=== PATIENT | female | born 1995 | race Hispanic/Latino ===

== ENCOUNTER 2023-11-26 13:52 | Emergency (ER) | payer OTHER ==
[~2023-11-26] VITALS: Ht 154.9 cm; Wt 50.2 kg
[2023-11-26] MEDS ORDERED: PRENMIS3 PO (14:03)
[2023-11-26] MEDS: NS 1,000 ML IV ONE (14:44)
[2023-11-26] MEDS: ONDANSETRON 4MG 2ML VIAL IV ONE (14:44)
[2023-11-26 14:49] LABS: BASO % 0.4 % (0.0-1.0); EOS # 0.4 10^3/uL (0.0-0.5); EOS % 4.8 % (0.0-3.0); HEMATOCRIT 35.9 % (36.0-47.0); HEMOGLOBIN 12.2 g/dl (12.0-15.5); LYMPH # 1.7 10^3/uL (1.5-5.0); LYMPH % 21.7 % (24.0-44.0); MEAN CORPUSCULAR VOLUME 88.4 fl (80.0-96.0); MONO # 0.6 10^3/uL (0.0-0.8); MONO % 7.5 % (2.0-8.0); NEUTROPHILS # 5.1 10^3/uL (1.5-8.5); NEUTROPHILS % 65.3 % (36.0-66.0); PLATELET COUNT, AUTOMATED 227 10^3/uL (150-450); RED BLOOD COUNT 4.06 10^6/uL (4.00-5.40); WHITE BLOOD COUNT 7.8 10^3/uL (4.0-10.0)
[2023-11-26 15:51] LABS: RSV AMPLIFICATION NEGATIVE (NEGATIVE)
[2023-11-26 16:34] LABS: ALBUMIN 3.6 G/DL (3.2-5.2); ALKALINE PHOSPHATASE 61 U/L (46-116); ALT/SGPT 23 U/L (7.0-40); AST/SGOT 44 U/L (<34); BILIRUBIN,DIRECT 0.2 MG/DL (<0.4); BILIRUBIN,TOTAL 0.7 MG/DL (0.3-1.2); BLOOD UREA NITROGEN 10 MG/DL (9-23); CALCIUM LEVEL 8.7 MG/DL (8.5-10.1); CARBON DIOXIDE LEVEL 25 MMOL/L (20-31); CHLORIDE LEVEL 103 MMOL/L (98-107); CREATININE FOR GFR 0.49 MG/DL (0.55-1.30); GLOMERULAR FILTRATION RATE > 60.0 (>60); GLUCOSE, FASTING 85 MG/DL (60-100); LIPASE 46 U/L (12-53); POTASSIUM SERUM 4.8 MMOL/L (3.5-5.1); SODIUM LEVEL 135 MMOL/L (136-145); TOTAL PROTEIN 6.8 G/DL (5.7-8.2)
[2023-11-26 16:46] LABS: HCG, SERUM QUANTITATIVE 104141.9 MIU/ML (<4.2)
[2023-11-26] MEDS ORDERED: ONDA4TAB6 PO (17:37)
[2023-11-26 17:47] VITALS: BP 112/66; TEMP 97.7; O2SAT 100
== END 2023-11-26 17:48 | disposition home or self-care (01) ==
LOC: M ED 13:52
DX: O20.8 Other hemorrhage in early pregnancy (principal); O21.9 Vomiting of pregnancy, unspecified; Z79.899 Other long term (current) drug therapy; Z79.810 Long term (current) use of selective estrogen receptor modulators (SERMs)
CPT/HCPCS: 76801; 76817; 80048; 80076; 81001; 83690; 84702; 85025; 87631; 93976; 96361; 96374; 99284; J2405

== ENCOUNTER 2024-02-14 22:38 | Emergency (ER) | payer OTHER ==
[~2024-02-14] VITALS: Ht 157.5 cm; Wt 50.0 kg
[~2024-02-14 22:38] MED LIST: ONDA-282 PO; PRENMIS3 PO
[2024-02-15 00:49] LABS: BASO % 0.2 % (0.0-1.0); EOS # 0.1 10^3/uL (0.0-0.5); EOS % 1.1 % (0.0-3.0); HEMOGLOBIN 10.9 g/dl (12.0-15.5); LYMPH # 1.2 10^3/uL (1.5-5.0); LYMPH % 11.5 % (24.0-44.0); MEAN CORPUSCULAR HEMOGLOBIN 31.1 pg (27.0-33.0); MEAN CORPUSCULAR HGB CONC 34.1 g/dl (32.0-36.5); MEAN CORPUSCULAR VOLUME 91.4 fl (80.0-96.0); MONO # 0.6 10^3/uL (0.0-0.8); MONO % 5.3 % (2.0-8.0); NEUTROPHILS # 8.6 10^3/uL (1.5-8.5); NEUTROPHILS % 81.6 % (36.0-66.0); PLATELET COUNT, AUTOMATED 210 10^3/uL (150-450); WHITE BLOOD COUNT 10.6 10^3/uL (4.0-10.0)
[2024-02-15 01:15] LABS: ALBUMIN 3.1 G/DL (3.2-5.2); ALKALINE PHOSPHATASE 71 U/L (46-116); ALT/SGPT 31 U/L (7.0-40); AST/SGOT 36 U/L (<34); BILIRUBIN,DIRECT < 0.1 MG/DL (<0.4); BILIRUBIN,TOTAL 0.4 MG/DL (0.3-1.2); BLOOD UREA NITROGEN 8 MG/DL (9-23); CALCIUM LEVEL 8.7 MG/DL (8.5-10.1); CARBON DIOXIDE LEVEL 24 MMOL/L (20-31); CHLORIDE LEVEL 109 MMOL/L (98-107); CREATININE FOR GFR 0.55 MG/DL (0.55-1.30); GLOMERULAR FILTRATION RATE > 60.0 (>60); GLUCOSE, FASTING 110 MG/DL (60-100); POTASSIUM SERUM 4.2 MMOL/L (3.5-5.1); SODIUM LEVEL 141 MMOL/L (136-145); TOTAL PROTEIN 6.4 G/DL (5.7-8.2)
[2024-02-15 01:23] VITALS: BP 114/67; TEMP 97.8; O2SAT 100
== END 2024-02-15 02:21 | disposition home or self-care (01) ==
LOC: EDBD 22:38 → M ED 22:38
DX: O26.892 Other specified pregnancy related conditions, second trimester (principal); R10.9 Unspecified abdominal pain; V49.10XA Passenger injured in collision with unspecified motor vehicles in nontraffic accident, initial encounter; E28.2 Polycystic ovarian syndrome; Z3A.19 19 weeks gestation of pregnancy; Y92.410 Unspecified street and highway as the place of occurrence of the external cause; Y93.89 Activity, other specified; Y99.9 Unspecified external cause status; Z79.83 Long term (current) use of bisphosphonates; Z79.899 Other long term (current) drug therapy

== ENCOUNTER 2024-05-12 14:29 | Outpatient (CLI) | payer OTHER ==
[~2024-05-12] VITALS: Ht 154.9 cm; Wt 56.3 kg
[2024-05-12] MEDS ORDERED: HOME MED LIST COMPLETE! XX SCH (14:45)
[2024-05-12 14:48] VITALS: BP 115/69
[2024-05-12 17:12] VITALS: BP 113/76
[2024-05-12 17:36] LABS: APPEARANCE, URINE HAZY (CLEAR); BACTERIA, URINE AUTO 1+ (NEGATIVE); BILIRUBIN, URINE AUTO NEGATIVE (NEGATIVE); BLOOD, URINE BLOOD NEGATIVE (NEGATIVE); COLOR, URINE YELLOW (YELLOW); GLUCOSE, URINE (UA) AUTO NEGATIVE (NEGATIVE); KETONE, URINE AUTO NEGATIVE (NEGATIVE); LEUKOCYTE ESTERASE, URINE AUTO NEGATIVE (NEGATIVE); MUCUS, URINE SMALL (NEGATIVE); NITRITE, URINE AUTO NEGATIVE (NEGATIVE); PROTEIN, URINE AUTO NEGATIVE (NEGATIVE); RBC, URINE AUTO 0 /HPF (0-3); SPECIFIC GRAVITY URINE AUTO 1.013 (1.002-1.035); SQUAMOUS EPITHELIAL CELL UR AU 6 /HPF (0-6); UROBILINOGEN, URINE AUTO 0.2 mg/dL (0.0-2.0); WBC, URINE AUTO 1 /HPF (0-3)
[2024-05-12 17:38] LABS: HEMATOCRIT 30.3 % (36.0-47.0); HEMOGLOBIN 10.1 g/dl (12.0-15.5); MEAN CORPUSCULAR HEMOGLOBIN 30.3 pg (27.0-33.0); MEAN CORPUSCULAR HGB CONC 33.3 g/dl (32.0-36.5); PLATELET COUNT, AUTOMATED 215 10^3/uL (150-450); RED BLOOD COUNT 3.33 10^6/uL (4.00-5.40); WHITE BLOOD COUNT 7.9 10^3/uL (4.0-10.0)
[2024-05-12 18:05] LABS: ALBUMIN 2.7 G/DL (3.2-5.2); ALKALINE PHOSPHATASE 124 U/L (46-116); ALT/SGPT 10 U/L (7.0-40); AST/SGOT 13 U/L (<34); BILIRUBIN,TOTAL 0.5 MG/DL (0.3-1.2); BLOOD UREA NITROGEN 10 MG/DL (9-23); CALCIUM LEVEL 9.2 MG/DL (8.5-10.1); CARBON DIOXIDE LEVEL 23 MMOL/L (20-31); CHLORIDE LEVEL 107 MMOL/L (98-107); CREATININE FOR GFR 0.47 MG/DL (0.55-1.30); GLOMERULAR FILTRATION RATE > 60.0 (>60); GLUCOSE, FASTING 78 MG/DL (60-100); POTASSIUM SERUM 3.9 MMOL/L (3.5-5.1); SODIUM LEVEL 137 MMOL/L (136-145); TOTAL PROTEIN 6.5 G/DL (5.7-8.2)
== END 2024-05-12 20:45 | disposition home or self-care (01) ==
LOC: M LDO 14:29
PROVIDERS: ATTEND Advanced Practice Midwife
DX: O26.893 Other specified pregnancy related conditions, third trimester (principal); R25.2 Cramp and spasm; R10.2 Pelvic and perineal pain; Z3A.38 38 weeks gestation of pregnancy
CPT/HCPCS: 36415; 59025; 76775; 80053; 81001; 85027; 87086; G0463

== ENCOUNTER → 2024-05-25 | Outpatient (CLI) | payer OTHER | LOC: M RAD 10:11 | PROVIDERS: ATTEND Obstetrics & Gynecology | DX: Z34.93 Encounter for supervision of normal pregnancy, unspecified, third trimester (principal); Z3A.28 28 weeks gestation of pregnancy; R93.89 Abnormal findings on diagnostic imaging of other specified body structures ==

== ENCOUNTER 2024-07-11 12:37 | Outpatient (CLI) | payer OTHER ==
[~2024-07-11] VITALS: Ht 154.9 cm; Wt 58.8 kg
[2024-07-11 13:03] VITALS: BP 138/86
[2024-07-11] MEDS ORDERED: UNIS25TA5 PO (13:19)
[2024-07-11] MEDS ORDERED: HOME MED LIST COMPLETE! XX SCH (13:20)
[2024-07-11 14:20] VITALS: BP 173/97
[2024-07-11 14:33] VITALS: BP 124/84
== END 2024-07-11 15:27 | disposition home or self-care (01) ==
LOC: M LDO 12:37
PROVIDERS: ATTEND Obstetrics & Gynecology
DX: O47.1 False labor at or after 37 completed weeks of gestation (principal); Z3A.39 39 weeks gestation of pregnancy
CPT/HCPCS: 59025; G0463

== ENCOUNTER 2024-07-11 21:38 | Inpatient (IN) | payer OTHER ==
[~2024-07-11] VITALS: Ht 154.9 cm; Wt 58.0 kg
[~2024-07-11 21:38] MED LIST changes: +**PENDING PCN ENTRY XX SCH; +UNIS25TA5 PO
[2024-07-11 21:54] VITALS: BP 137/63
[2024-07-11] MEDS ORDERED: CARBOPROST TROMETHAMINE 250 MCG/ML AMP IM PRN (22:15)
[2024-07-11] MEDS ORDERED: OXYTOCIN DRIP 30 UNITS in IV 1 EA IV PRN (22:15)
[2024-07-11] MEDS ORDERED: METHYLERGONOVINE MALEATE 0.2MG/ML 1ML VIAL IM PRN (22:15)
[2024-07-11] MEDS ORDERED: TRANEXAMIC ACID INJection 1,000 MG in NS 100 ML IV PRN (22:15)
[2024-07-11 22:59] LABS: HEMATOCRIT 34.5 % (36.0-47.0); HEMOGLOBIN 11.2 g/dl (12.0-15.5); MEAN CORPUSCULAR HEMOGLOBIN 27.1 pg (27.0-33.0); MEAN CORPUSCULAR HGB CONC 32.5 g/dl (32.0-36.5); MEAN CORPUSCULAR VOLUME 83.5 fl (80.0-96.0); PLATELET COUNT, AUTOMATED 217 10^3/uL (150-450); RED BLOOD COUNT 4.13 10^6/uL (4.00-5.40); WHITE BLOOD COUNT 12.5 10^3/uL (4.0-10.0)
[2024-07-11] MEDS ORDERED: diphenhydrAMINE 50MG/ML VIAL IV PRN (23:55)
[2024-07-11] MEDS ORDERED: LR 500 ML IV PRN (23:55)
[2024-07-11] MEDS ORDERED: EPIDURAL/PCA KEYS XX PRN (23:55)
[2024-07-11] MEDS ORDERED: ePHEDrine SULFATE 25 MG/5 ML(5MG/ML) SYRINGE IVP PRN (23:55)
[2024-07-11] MEDS ORDERED: ONDANSETRON 4MG 2ML VIAL IV PRN (23:55)
[2024-07-11] MEDS ORDERED: NALOXONE INJ 0.4MG/1ML VIAL IV PRN (23:55)
[2024-07-12] VITALS (30 sets, daily range): BP systolic 110–149; BP diastolic 58–94; O2SAT 100
[2024-07-12 00:15] LABS: HEPATITIS C VIRUS ABY INDEX 0.03 INDEX (<0.8)
[2024-07-12] MEDS: PENICILLIN G POTASSIUM 5 MU IV 5 MU in DEXTROSE 5% (D5W) MINI-BAG PLU 100 ML IV STA (01:11)
[2024-07-12] MEDS: LACTATED RINGER'S 1000 ML IV PRN (01:11)
[2024-07-12] MEDS: FENTANYL/ROPIVACAINE/NACL BAG 100 ML EPIDURAL SCH (01:12)
[2024-07-12] MEDS: ACETAMINOPHEN 500 MG TAB PO ONE (01:51)
[2024-07-12] MEDS ORDERED: PEN G POT 3,000,000 UNIT/50 ML 3,000,000 UNIT in IV 1 EA IV SCH ×2 (02:15→05:00)
[2024-07-12] MEDS: OXYTOCIN DRIP 30 UNITS in IV 1 EA IV SCH (02:57)
[2024-07-12] MEDS: LR 1,000 ML IV SCH (02:57)
[2024-07-12] MEDS ORDERED: METHYLERGONOVINE MALEATE 0.2 MG TAB PO PRN (05:25)
[2024-07-12] MEDS ORDERED: RHOGAM 300MCG (1500IU) INJ IM SCH (05:25)
[2024-07-12] MEDS ORDERED: DIBUCAINE 1% OINTMENT 30GM TOP PRN (05:25)
[2024-07-12] MEDS ORDERED: DOCUSATE SODIUM 100MG CAPSULE PO PRN (05:25)
[2024-07-12] MEDS: IBUPROFEN 600MG TAB PO PRN (05:54)
[2024-07-12] MEDS: PRENATAL VITAMINS CHEWABLE TABLET PO SCH (11:21)
[2024-07-12] MEDS: ACETAMINOPHEN 500 MG TAB PO PRN (18:02)
[2024-07-13 06:00] VITALS: BP 119/76; O2SAT 98
[2024-07-13 08:26] LABS: HEMATOCRIT 28.9 % (36.0-47.0); HEMOGLOBIN 9.5 g/dl (12.0-15.5); MEAN CORPUSCULAR HEMOGLOBIN 27.4 pg (27.0-33.0); MEAN CORPUSCULAR HGB CONC 32.9 g/dl (32.0-36.5); MEAN CORPUSCULAR VOLUME 83.3 fl (80.0-96.0); PLATELET COUNT, AUTOMATED 159 10^3/uL (150-450); RED BLOOD COUNT 3.47 10^6/uL (4.00-5.40); WHITE BLOOD COUNT 10.8 10^3/uL (4.0-10.0)
[2024-07-13 18:00] VITALS: BP 118/75; O2SAT 97
[2024-07-14 06:00] VITALS: BP 120/62; O2SAT 96
[2024-07-14] MEDS ORDERED: IBUP-1022 PO (09:01)
[2024-07-14] MEDS ORDERED: ACET-683 PO (09:01)
[2024-07-14] MEDS: MEASLES,MUMPS,RUBELLA VACCINE INJ (MMR-II) SC.IMMUN ONE (10:02)
== END 2024-07-14 12:20 | disposition home or self-care (01) | DRG 807 ==
LOC: M LDO 21:38 → M LDI 21:59 → M OBS 07-12 08:30
PROVIDERS: ADMIT Obstetrics & Gynecology; ATTEND Obstetrics & Gynecology
PROC: 3E033VJ Introduction of Other Hormone into Peripheral Vein, Percutaneous Approach (ICD-10-PCS; 2024-07-11)
PROC: 10E0XZZ Delivery of Products of Conception, External Approach (ICD-10-PCS; principal; 2024-07-12)
DX: O32.6XX0 Maternal care for compound presentation, not applicable or unspecified (principal); Z37.0 Single live birth; Z3A.39 39 weeks gestation of pregnancy; O99.824 Streptococcus B carrier state complicating childbirth

== ENCOUNTER → 2025-06-17 | Outpatient (CLI) | payer OTHER ==
[~2025-06-17] MED LIST changes: -**PENDING PCN ENTRY XX SCH; +ACET-683 PO; +IBUP600T42 PO
[2025-06-17 17:09] LABS: BASO # 0.1 10^3/uL (0.0-0.2); BASO % 1.0 % (0.0-1.0); EOS # 0.4 10^3/uL (0.0-0.5); EOS % 7.0 % (0.0-3.0); LYMPH # 2.0 10^3/uL (1.5-5.0); LYMPH % 33.4 % (24.0-44.0); MONO # 0.6 10^3/uL (0.0-0.8); MONO % 9.0 % (2.0-8.0); NEUTROPHILS # 3.0 10^3/uL (1.5-8.5); NEUTROPHILS % 49.4 % (36.0-66.0); PLATELET COUNT, AUTOMATED 244 10^3/uL (150-450)
[2025-06-17 17:42] LABS: IRON (FE) 86.0 UG/DL (50-170); PERCENT SATURATION 28.9 % (13.2-45.0)
[2025-06-17 17:45] LABS: FREE T4 1.2 NG/DL (0.89-1.76)
== END ==
LOC: M LAB 16:20 → M RAD 16:20
PROVIDERS: ATTEND Nurse Practitioner Family
DX: Z00.01 Encounter for general adult medical examination with abnormal findings (principal); N91.2 Amenorrhea, unspecified; G47.00 Insomnia, unspecified